=== PATIENT | female | born 1980 | race African-American/Black ===

== ENCOUNTER 2017-05-01 13:00 | Emergency (ER) | payer SELFPAY ==
[~2017-05-01] VITALS: Ht 175.3 cm; Wt 110.0 kg
[2017-05-01 13:06] VITALS: BP 146/106
== END 2017-05-01 18:22 | disposition left against medical advice (07) ==
LOC: ER 13:00
DX: R11.2 Nausea with vomiting, unspecified (principal); R10.9 Unspecified abdominal pain; Z53.21 Procedure and treatment not carried out due to patient leaving prior to being seen by health care provider
CPT/HCPCS: 93005